=== PATIENT | female | born 1980 | race Caucasian/White ===

== ENCOUNTER 2018-02-12 08:03 | Outpatient (CLI) | payer OTHER | END 2018-02-12 08:04 | disposition home or self-care (01) | LOC: BICMAMMO 08:03 | PROVIDERS: ATTEND Student in an Organized Health Care Education/Training Program | DX: N63.0 Unspecified lump in unspecified breast (principal); Z80.3 Family history of malignant neoplasm of breast | CPT/HCPCS: 76641; 77066; G0279 ==

== ENCOUNTER 2018-03-06 08:59 | Outpatient (CLI) | payer OTHER | END 2018-03-06 09:00 | disposition home or self-care (01) | LOC: DTY/OP 08:59 | PROVIDERS: ATTEND Family Medicine | DX: E66.9 Obesity, unspecified (principal); R53.83 Other fatigue; Z68.37 Body mass index [BMI] 37.0-37.9, adult | CPT/HCPCS: 97802 ==

== ENCOUNTER 2018-03-11 00:47 | Outpatient (CLI) | payer OTHER ==
[2018-03-11 01:18] LABS: ALT (SGPT) 21 U/L (8-55); AST (SGOT) 16 U/L (5-34); Albumin 4.4 g/dL (3.5-5.0); Alkaline Phosphatase 83 U/L (40-150); Anion Gap 13 mmol/L (10-20); BUN (Urea Nitrogen) 8 mg/dL (7.0-18.7); Bilirubin, Total 0.4 mg/dL (0.2-1.2); Calc. Creatinine Clearance 0 mL/min (70-130); Calcium 9.6 mg/dL (7.8-10.44); Carbon Dioxide 26 mmol/L (22-29); Chloride 103 mmol/L (98-107); Estimated GFR-MDRD 84; Globulin 3.9 g/dL (2.4-3.5); Glucose 95 mg/dL (70-105); Potassium 3.9 mmol/L (3.5-5.1); Protein, Total 8.3 g/dL (6.0-8.3); Sodium 138 mmol/L (136-145)
== END 2018-03-11 00:48 ==
LOC: SJX 00:47
PROVIDERS: ATTEND Family Medicine
DX: E66.9 Obesity, unspecified (principal); Z68.37 Body mass index [BMI] 37.0-37.9, adult
CPT/HCPCS: 36415; 80053; 83036; 84443

== ENCOUNTER 2018-05-31 08:52 | Outpatient (CLI) | payer OTHER | END 2018-05-31 08:53 | disposition home or self-care (01) | LOC: DTY/OP 08:52 | PROVIDERS: ATTEND Surgery | DX: E66.01 Morbid (severe) obesity due to excess calories (principal) | CPT/HCPCS: 97802 ==

== ENCOUNTER 2018-06-21 09:57 | Outpatient (CLI) | payer OTHER ==
[2018-06-21 11:11] LABS: #Eosinphils 0.3 thou/uL (0.0-0.7); #Lymphocytes 2.5 thou/uL (1.20-3.40); #Neutrophils 6.9 thou/uL (1.40-6.50); %Basophils 0.3 % (0.0-1.0); %Lymphocytes 23.4 % (21.0-51.0); %Monocytes 8.9 % (0.0-10.0); %Neutrophils 64.4 % (42.0-75.0); Hemoglobin 13.2 g/dL (12.0-16.0); Mean Corpuscular HGB CONC 34.5 g/dL (32.0-36.0); Mean Corpuscular Hemoglobin 28.8 pg (27.0-31.0); Mean Corpuscular Volume 83.5 fL (78.0-98.0); Mean Platelet Volume 8.2 fL (7.4-10.4); Platelet Count 312 thou/uL (130-400); RBC Distribution Width 12.9 % (11.5-14.5); Red Blood Cell (RBC) Count 4.58 mill/uL (4.20-5.40); White Blood Cell (WBC) Count 10.7 thou/uL (4.8-10.8)
[2018-06-21 11:20] LABS: BHCG - Serum Negative (NEGATIVE); Pregs Control Background? CLEAR/WHITE (CLR/WHITE); Pregs Control Bar Appear? YES (CONTROL BAR)
[2018-06-21 11:32] LABS: ALT (SGPT) 22 U/L (8-55); AST (SGOT) 21 U/L (5-34); Albumin 4.2 g/dL (3.5-5.0); Alkaline Phosphatase 88 U/L (40-150); Anion Gap 12 mmol/L (10-20); BUN (Urea Nitrogen) 15 mg/dL (7.0-18.7); Bilirubin, Direct 0.2 mg/dL (0.1-0.3); Bilirubin, Total 0.4 mg/dL (0.2-1.2); Calc. Creatinine Clearance 0 mL/min (70-130); Calcium 9.8 mg/dL (7.8-10.44); Carbon Dioxide 25 mmol/L (22-29); Chloride 101 mmol/L (98-107); Estimated GFR-MDRD 84; Glucose 80 mg/dL (70-105); Potassium 4.2 mmol/L (3.5-5.1); Protein, Total 8.2 g/dL (6.0-8.3); Sodium 134 mmol/L (136-145)
[2018-06-21 11:41] LABS: Hemoglobin A1c 5.6 % (4.0-6.0)
--- NOTE | 2018-06-21 12:35 | RAD ---
PA AND LATERAL CHEST: HISTORY: Preop. FINDINGS: Heart size and mediastinum are within normal limits. The lungs are clear of any infiltrative process . No significant bony findings. IMPRESSION: No active intrathoracic disease. POS: [facility]
--- NOTE | 2018-06-21 19:07 | EKG ---
Test Reason : Blood Pressure : / mmHG Vent. Rate : 073 BPM Atrial Rate : 073 BPM P-R Int : 138 ms QRS Dur : 082 ms QT Int : 376 ms P-R-T Axes : 063 052 048 degrees QTc Int : 414 ms Normal sinus rhythm Normal ECG No previous ECGs available Confirmed by Sharonda MITCHELL ([id number]) on 06/21/2018 7:07:05 PM Referred By: MARCIA Confirmed By:Sharonda MITCHELL
== END 2018-06-21 09:58 | disposition home or self-care (01) ==
LOC: LABBT 09:57
PROVIDERS: ATTEND Surgery
DX: Z01.818 Encounter for other preprocedural examination (principal); E66.01 Morbid (severe) obesity due to excess calories
CPT/HCPCS: 71046; 80053; 80076; 83036; 84703; 85025; 93005; 93010

== ENCOUNTER 2018-06-21 10:30 | Inpatient (IN) | payer OTHER ==
[2018-06-21 10:15] VITALS: BMI 34.1
[2018-07-03] MEDS ORDERED: Heparin 5,000 UNITS/ML VIAL ONE (12:49)
[2018-07-03] MEDS ORDERED: CEFAZOLIN 2 GM/50 ML BAG ONE (12:49)
[2018-07-03] MEDS ORDERED: Scopolamine 1.5 mg/72 hour Patch ONE (12:58)
[2018-07-03] MEDS ORDERED: Bupivacaine/Epinephrine 0.25% 30 ML VIAL ONE (13:14)
[2018-07-03] MEDS ORDERED: Midazolam HCl 2 mg/2 ml Vial ONE (13:16)
[2018-07-03] MEDS ORDERED: Famotidine/PF 20 mg/2ml Vial ONE ×2 (13:28→13:39)
[2018-07-03] MEDS ORDERED: Fentanyl 100 MCG/2 ML VIAL ONE ×4 (13:28→16:51)
[2018-07-03] MEDS ORDERED: Oxymetazoline HCl 0.05% ( 15 ML ) ONE (13:39)
[2018-07-03] MEDS ORDERED: Ondansetron PF 4 MG/2 ML Vial ONE ×2 (13:40→21:49)
[2018-07-03] MEDS ORDERED: Promethazine HCl 25 MG/ML VIAL IM PRN ×3 (15:43→16:26)
[2018-07-03] MEDS ORDERED: Ondansetron HCl/PF 4 MG/2 ML Vial IVP PRN ×2 (15:43→16:26)
[2018-07-03] MEDS ORDERED: Promethazine HCl 25 MG/ML VIAL SLOW IVP PRN ×2 (15:43→16:26)
[2018-07-03] MEDS ORDERED: HYDROmorphone 2 MG/ML VIAL SLOW IVP PRN (15:43)
[2018-07-03] MEDS ORDERED: Meperidine HCl/PF 25 MG/ML VIAL SLOW IVP PRN (15:43)
[2018-07-03] MEDS ORDERED: Promethazine HCl 25 MG/ML VIAL ONE (15:59)
[2018-07-03] MEDS ORDERED: Dextrose 50% Abboject 50 ML SYRINGE SLOW IVP PRN (16:17)
[2018-07-03] MEDS ORDERED: Hydrocodone-Acetamin 15 ML UDCUP PO PRN ×2 (16:17→16:32)
[2018-07-03] MEDS ORDERED: Ondansetron PF 4 MG/2 ML Vial IVP PRN (16:17)
[2018-07-03] MEDS ORDERED: diphenhydrAMINE 50 MG/ML VIAL IVP PRN ×2 (16:17→16:26)
[2018-07-03] MEDS ORDERED: hydrALAZINE 20 MG/ML VIAL SLOW IVP PRN (16:17)
[2018-07-03] MEDS ORDERED: Dextrose 5% in Water 1,000 ML IV PRN (16:17)
[2018-07-03] MEDS ORDERED: Zolpidem Tartrate 5 MG TAB PO PRN (16:26)
[2018-07-03] MEDS ORDERED: diphenhydrAMINE 50 MG/ML VIAL IM PRN (16:26)
[2018-07-03] MEDS ORDERED: Naloxone HCl 0.4 mg/ml Vial IV PRN (16:26)
[2018-07-03] MEDS ORDERED: fentaNYL Citrate/PF 2,000 MCG in Sodium Chloride 0.9% 60 ML IV PRN (16:26)
[2018-07-03] MEDS ORDERED: diphenhydrAMINE 25 MG CAP PO PRN (16:26)
[2018-07-03] MEDS ORDERED: Communication Order-Pharmacy FS SCH (16:30)
[2018-07-03] MEDS: D5 1/2 NS w/20 mEq KCL 1,000 ML IV SCH (18:19)
[2018-07-03] MEDS: Acetaminophen 1,000 MG in Premix Bag 1 BAG IVPB SCH (21:11)
[2018-07-03] MEDS: Enoxaparin Sodium 40 MG/0.4 ML SYRINGE SC SCH (21:11)
[2018-07-03] MEDS ORDERED: Lidocaine 1% PF 5 ML VIAL ONE (21:49)
[2018-07-03] MEDS ORDERED: PROPOFOL 200 MG/20 ML VIAL ONE (21:49)
[2018-07-03] MEDS ORDERED: Dexamethasone 20 MG/5 ML VIAL ONE (21:49)
[2018-07-03] MEDS ORDERED: Glycopyrrolate 0.2 MG/ML 5 ML SYRINGE ONE (21:49)
[2018-07-03] MEDS ORDERED: PHENYLEPHRINE-NS 100 MCG/ML 10 ML SYRINGE ONE (21:49)
[2018-07-03] MEDS ORDERED: Ketorolac Tromethamine 30 MG/ML VIAL ONE (21:49)
[2018-07-03] MEDS: Ondansetron PF 4 MG/2 ML Vial IVP PRN (22:48)
[2018-07-04] MEDS: Promethazine HCl 25 MG/ML VIAL IM PRN ×4 (00:30→18:31)
[2018-07-04] MEDS: Acetaminophen 1,000 MG in Premix Bag 1 BAG IVPB SCH ×3 (02:26→14:35)
[2018-07-04] MEDS: D5 1/2 NS w/20 mEq KCL 1,000 ML IV SCH ×3 (02:29→19:00)
[2018-07-04] MEDS: Ondansetron PF 4 MG/2 ML Vial IVP PRN ×3 (04:57→20:38)
[2018-07-04 08:16] LABS: #Lymphocytes 2.3 thou/uL (1.20-3.40); #Monocytes 1.1 thou/uL (0.11-0.59); #Neutrophils 7.8 thou/uL (1.40-6.50); %Basophils 0.2 % (0.0-1.0); %Eosinophils 0.3 % (0.0-10.0); %Lymphocytes 20.6 % (21.0-51.0); %Neutrophils 68.9 % (42.0-75.0); Hemoglobin 12.1 g/dL (12.0-16.0); Mean Corpuscular HGB CONC 32.1 g/dL (32.0-36.0); Platelet Count 271 thou/uL (130-400); RBC Distribution Width 13.3 % (11.5-14.5); Red Blood Cell (RBC) Count 4.49 mill/uL (4.20-5.40); White Blood Cell (WBC) Count 11.2 thou/uL (4.8-10.8)
[2018-07-04 08:25] LABS: Anion Gap 12 mmol/L (10-20); BUN (Urea Nitrogen) 4 mg/dL (7.0-18.7); Calc. Creatinine Clearance 179 mL/min (70-130); Calcium 8.8 mg/dL (7.8-10.44); Carbon Dioxide 24 mmol/L (22-29); Chloride 105 mmol/L (98-107); Estimated GFR-MDRD Greater than 90; Glucose 122 mg/dL (70-105); Potassium 3.9 mmol/L (3.5-5.1); Sodium 137 mmol/L (136-145)
[2018-07-04] MEDS: Pantoprazole 40 MG VIAL IVP SCH (08:53)
[2018-07-04] MEDS ORDERED: Acetaminophen 1,000 MG in Premix Bag 1 BAG IVPB PRN (16:41)
--- NOTE | 2018-07-04 17:12 | PRG ---
DATE OF SERVICE: 07/04/2018 SUBJECTIVE: Postop day #1. Ms. Roman is still having persistent nausea this afternoon. She dry heaves with attempting too much p.o. OBJECTIVE: She is afebrile. Vital signs are stable. Her wounds are healing well. LABORATORY DATA: White blood cell count is 11 and hemoglobin is 12. Sodium 137 and creatinine is 0.71. ASSESSMENT: Postoperative day #1 gastric sleeve and cholecystectomy. PLAN: Continue IV fluids. Continue observation. 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 We will control her pain with Toradol and IV Tylenol. Job ID: [id number]
[2018-07-04] MEDS: Ketorolac Tromethamine 30 MG/ML VIAL IVP PRN (18:31)
[2018-07-04] MEDS: Enoxaparin Sodium 40 MG/0.4 ML SYRINGE SC SCH (20:13)
[2018-07-05] MEDS: D5 1/2 NS w/20 mEq KCL 1,000 ML IV SCH ×2 (00:45→06:14)
[2018-07-05] MEDS: Ketorolac Tromethamine 30 MG/ML VIAL IVP PRN (04:04)
[2018-07-05] MEDS: Ondansetron PF 4 MG/2 ML Vial IVP PRN (04:05)
[2018-07-05 07:58] VITALS: TEMP 98.9
[2018-07-05] MEDS: Pantoprazole 40 MG VIAL IVP SCH (09:28)
--- NOTE | 2018-07-05 10:28 | DIS ---
DATE OF ADMISSION: 07/03/2018 DATE OF DISCHARGE: 07/05/2018 ADMITTING DIAGNOSES: Morbid obesity, symptomatic gallstones. DISCHARGE DIAGNOSES: Morbid obesity, symptomatic gallstones. PROCEDURE PERFORMED: Laparoscopic sleeve and cholecystectomy by Dr. Barnes without complication. CONDITION ON DISCHARGE: Improved. STAFF: Dr. Barnes. HOSPITAL COURSE: On postop day #2, the patient's nausea is much improved. She is ambulatory. She is drinking adequate enough liquids. She is being discharged to home. She will follow up with me in 2 weeks. Job ID: [id number]
[2018-07-05 11:39] VITALS: BP 106/72
--- NOTE | 2018-07-05 12:56 | OP ---
DATE OF PROCEDURE: 07/03/2018 PREOPERATIVE DIAGNOSES: 1. Morbid obesity with body mass index of 35. 2. Symptomatic cholelithiasis. POSTOPERATIVE DIAGNOSES: 1. Morbid obesity with body mass index of 35. 2. Symptomatic cholelithiasis. PROCEDURES PERFORMED: 1. Laparoscopic sleeve gastrectomy with [place] staple line reinforcements and 38-Pashto bougie. 2. Laparoscopic cholecystectomy. ANESTHESIA: General. ESTIMATED BLOOD LOSS: Minimal. COMPLICATIONS: None. SPECIMEN: Gallbladder, stomach. DESCRIPTION OF PROCEDURE: The patient was taken to the operating room and laid supine on the operating room table. After general anesthetic was obtained, the abdomen was prepped and draped in a sterile fashion. An OG tube was used to decompress the stomach. Left subcostal 5 mm Optiview trocar was placed in the usual fashion and high-flow pneumoperitoneum was obtained. Left abdominal 12 mm ports as well as right subcostal 5 mm port were placed under direct visualization. A 5 mm incision was made at the xiphoid and the Anni was used to raise the liver off the GE junction. The short gastrics were taken down at mid body of stomach to left niki of diaphragm. Left niki, posterior fundus, and angle of His were completely dissected. Short gastrics were taken down to a distance of 6 cm proximal to the pylorus. OG tube was removed and 38 bougie was brought in with its tip left in the antrum of the stomach. Multiple loads of the [place] stapling device was used to perform the sleeve. The first was fired up at a distance of 6 cm proximal to the pylorus angled up towards the incisura. Care was taken to avoid being too close to the incisura. Multiple loads were then fired up along the bougie and stomach was completely transected at the angle of His. The stomach was removed from the left abdominal incision. This fascial defect was closed using GraNee needle and a Vicryl tie. The bougie was removed and an EGD scope was passed through esophagus and stomach to the level of duodenum without obstruction. There was no stricture at the incisura. There was no air leakage or bleeding on the staple line. EGD scope was used to decompress the stomach, it was pulled and removed. The gallbladder was retracted superiorly over the liver. The peritoneum was opened anteriorly and posteriorly. The critical view triangle was seen showing only the cystic duct and cystic artery branching from medial to lateral. There were no other branching structures. Two clips were placed proximally, one distally, and cut. The cystic artery was taken using laparoscopic scissors. The cystic duct was taken in the same way. The gallbladder was retracted from the gallbladder fossa. Gallbladder was placed in an Endo catch bag and brought out through the left abdominal 12 mm port. All port sites were infiltrated using local anesthetic. All ports were removed under camera visualization without bleeding. Pneumoperitoneum was let down. All incisions were irrigated and closed using 4-0 Monocryl and Dermabond. The patient was sent to Recovery in stable condition. All instrument counts, needle counts, and lap counts were correct. Job ID: [id number]
== END 2018-07-05 13:13 | disposition home or self-care (01) | DRG 621 ==
LOC: SURG A 07-03 11:06
PROVIDERS: ADMIT Surgery; ATTEND Surgery
PROC: 0DB64Z3 Excision of Stomach, Percutaneous Endoscopic Approach, Vertical (ICD-10-PCS; principal; 2018-07-03)
PROC: 0FT44ZZ Resection of Gallbladder, Percutaneous Endoscopic Approach (ICD-10-PCS; 2018-07-03)
DX: E66.01 Morbid (severe) obesity due to excess calories (principal); Z68.35 Body mass index [BMI] 35.0-35.9, adult; K80.20 Calculus of gallbladder without cholecystitis without obstruction; Z82.49 Family history of ischemic heart disease and other diseases of the circulatory system; Z83.3 Family history of diabetes mellitus
CPT/HCPCS: 36415; 80048; 85025; 88304; 88307; 88312; 94760; 96374; C9113; J0131; J1100; J1200; J1644; J1650; J1885; J2001; J2250; J2405; J2550; J2704; J3010; J7050; S0028

== ENCOUNTER 2019-04-27 13:21 | Emergency (ER) | payer OTHER ==
--- NOTE | 2019-04-27 14:57 | RAD ---
Right ankle 3 views HISTORY: Right ankle injury. FINDINGS: Ankle mortise and talar dome are intact. No acute fracture or dislocation. IMPRESSION: No acute osseous abnormalities are demonstrated.
== END 2019-04-27 15:36 | disposition home or self-care (01) ==
LOC: ERS 13:21
DX: S93.401A Sprain of unspecified ligament of right ankle, initial encounter (principal); W10.9XXA Fall (on) (from) unspecified stairs and steps, initial encounter

== ENCOUNTER 2020-06-15 10:19 | Day surgery (SDC) | payer OTHER ==
[2020-06-15] MEDS ORDERED: CeleCOXIB 100 MG CAP ONE (10:50)
[2020-06-15] MEDS ORDERED: Gabapentin 300 MG CAP ONE (10:50)
[2020-06-15] MEDS ORDERED: Famotidine/PF 20 mg/2ml Vial ONE (10:50)
[2020-06-15] MEDS ORDERED: Midazolam HCl 2 mg/2 ml Vial ONE (11:30)
[2020-06-15] MEDS ORDERED: Scopolamine 1.5 mg/72 hour Patch ONE (11:31)
[2020-06-15] MEDS ORDERED: Fentanyl 250 MCG/5 ML VIAL ONE (12:19)
[2020-06-15] MEDS ORDERED: Lidocaine 1% w/Epinephrine 1:100K 20 ML VIAL ONE (12:21)
[2020-06-15] MEDS ORDERED: diphenhydrAMINE 50 MG/ML VIAL ONE (12:21)
[2020-06-15] MEDS ORDERED: Dexamethasone 20 MG/5 ML VIAL ONE (12:21)
[2020-06-15] MEDS ORDERED: Bupivacaine 0.25% HCL 30 ML VIAL ONE (12:21)
[2020-06-15] MEDS ORDERED: PROPOFOL 200 MG/20 ML VIAL ONE (12:21)
[2020-06-15] MEDS ORDERED: Ondansetron PF 4 MG/2 ML Vial ONE (12:21)
[2020-06-15] MEDS ORDERED: Glycopyrrolate 0.2 MG/ML 5 ML SYRINGE ONE (12:21)
[2020-06-15] MEDS ORDERED: Rocuronium Bromide 10 MG/ML (10ML VIAL) ONE (12:21)
[2020-06-15] MEDS ORDERED: Fentanyl 100 MCG/2 ML VIAL ONE (15:08)
[2020-06-15] MEDS ORDERED: HYDROcodone/Acetaminophen 5/325 mg Tablet ONE (16:30)
--- NOTE | 2020-06-16 13:04 | OP ---
DATE OF PROCEDURE: 06/15/2020 PREOPERATIVE DIAGNOSIS: Menorrhagia. POSTOPERATIVE DIAGNOSES: Menorrhagia plus endometriosis. PROCEDURES PERFORMED: Robotic-assisted total laparoscopic hysterectomy, bilateral salpingectomy, and excision of endometriosis. ANESTHESIA: General endotracheal. TRACTOR DRILL OPERATOR SURGEON: Deidra Valencia PA-C ESTIMATED BLOOD LOSS: 20 mL. URINE OUTPUT: 100 mL clear urine. PATHOLOGY: 1. Uterus, cervix, bilateral fallopian tubes. 2. Right uterosacral ligament peritoneum. 3. Left pelvic sidewall peritoneum. COMPLICATIONS: None. DRAINS: Carrillo catheter. FINDINGS: An 8 cm uterus, 4 cm anterior subserosal fibroid. Multiple endometriotic balloon implants on the right uterosacral ligament and the left pelvic sidewall peritoneum. These were resected entirely. The left ovary was adherent to the left pelvic sidewall where these endometriotic implants were present and this was taken down. The ureters and bladder were intact. There was excellent hemostasis. There were normal ovaries and fallopian tubes bilaterally. DESCRIPTION OF PROCEDURE: The patient was taken to the operating room, where general anesthesia was obtained without difficulty. The patient was prepped and draped in a sterile fashion in dorsal lithotomy position. Carrillo catheter was placed in the bladder. A speculum was placed in the vagina. The anterior lip of the cervix was grasped with a single-tooth tenaculum. The cervix was then progressively dilated with Dereck dilators and sounded to 8 cm. The MARLEE manipulator was assembled with an 8 cm tip and a 3.5 cm colpotomizer ring. The manipulator was inserted into the uterus. The balloons were inflated. The speculum and tenaculum were removed out of the vagina. Legs were placed in low lithotomy. Attention was turned to the abdomen. A mixture of 0.5% Marcaine with epinephrine and 1% lidocaine plain were infiltrated into the umbilicus and a 12 mm skin incision was made. The Veress needle was passed into the abdomen noting an opening pressure of 2 mmHg. Pneumoperitoneum was obtained without difficulty. The Veress needle was removed and a 12 mm trocar was passed into the abdomen and confirmed placement with robotic camera. Steep Trendelenburg was obtained. Right and left lower quadrant 8 mm robotic trocars were placed under direct visualization after infiltrating with anesthetic mixture. A right upper quadrant 11 mm port was also placed under direct visualization after infiltrating with anesthetic. The robot was then docked. The right robotic arm contained monopolar scissors. Left robotic arm contained a fenestrated bipolar. The above findings were noted. The right fallopian tube was grasped and elevated. The ovary was free of any adhesions. The mesosalpinx and the vasculature to the fallopian tube were cauterized with the fenestrated and incised with the scissors until the medial portion of the fallopian tube was met, that was clamped across with the fenestrated, cauterized, and then incised with the scissors and the fallopian tube was removed out of the abdomen. The right utero-ovarian was cauterized multiple times with the fenestrated and incised with the scissors as well as the round ligament was cauterized in the midportion and incised with the scissors. This opened up the anterior and posterior leaf of the broad ligament and the posterior leaf of the broad ligament was incised pushing retroperitoneum adventitia away with the fenestrated bluntly and the posterior leaf was incised down to the level of the uterosacral ligament and the ureter was then identified in the retroperitoneum laterally. The anterior leaf of the broad ligament was incised down to the level of the vesicouterine peritoneum. The vessels on the right side were then skeletonized sharply with the scissors as well as bluntly with the fenestrated pushing and spreading. The vesicouterine peritoneum was incised tenting up with the fenestrated to ensure a superficial incision and no inadvertent damage to the bladder. Adventitia of the bladder was then pushed away and incised with the scissors to create a bladder flap. Attention was turned to the left fallopian tube that was grasped and elevated. The ovary was gently peeled off the pelvic sidewall easily. The vasculature to the fallopian tube in the mesosalpinx was cauterized and incised as well as the supporting structures and the medial portion was clamped across, cauterized with the fenestrated, and incised with the scissors, and the fallopian tube was removed out of the abdomen. The left utero-ovarian was cauterized with the fenestrated and incised with scissors and taken down to the midportion of the round ligament that was cauterized and incised as well. The posterior leaf of the broad ligament was incised down to the level of the uterosacral with the scissors and the anterior leaf of the broad ligament was incised down to the bladder flap. The vessels on the left side were skeletonized with the scissors and the ureter was identified in the pelvic sidewall retroperitoneally and laterally. The uterine pedicle was then cauterized bilaterally. The colpotomy was performed anteriorly and posteriorly. The vessels were then incised at the level of the internal cervical os and then dissected down off the cardinal ligament to allow the pedicle to fall away and the ureter to fall bilaterally. The colpotomy was then completed and the uterus was then placed into the vagina. The pelvis was irrigated and suctioned. Hemostasis was achieved of the vaginal cuff with the fenestrated. The scissors were traded out for the needle regional dedicated truck driver and a 2-0 barbed Stratafix suture was used to close the vaginal cuff in a running fashion and this was run back for a second layer. This stitch incorporated vaginal mucosa and posterior peritoneum in each bite. Once this was completed, the needle was cut and removed out of the abdomen. The endometriotic implants present on the right uterosacral ligament were then grasped with the fenestrated. The scissors were then placed back into the right robotic arm and the peritoneum surrounding these endometriotic implants were incised and this implant on the right uterosacral ligament was incised in one piece and sent for final pathology. The implants present on the left pelvic sidewall were also grasped and tented upon with the fenestrated and then incised with the scissors surrounding it and these were excised completely and this was also sent for final pathology. Irrigation was then performed of the pelvis again and low pressure check was performed, noting excellent hemostasis. The ureters were noted and the pelvic sidewall vermiculating. All instruments were then removed out of the abdomen. Pneumoperitoneum was released. The robot was undocked. The fascia of the umbilical port was repaired with 0 Vicryl in a [id number] fashion. The skin was closed with 4-0 Monocryl in a subcuticular fashion. Dermabond was applied as well as a pressure dressing. The vagina was checked vaginally and was noted to have excellent hemostasis and reapproximation and all instruments were removed out of vagina. The patient tolerated the procedure well. Sponge, lap, and needle counts were correct x2. The patient was taken to Recovery in stable condition. The patient received Ancef 2 g prior to procedure. Job ID: [id number]
== END 2020-06-15 17:32 | disposition home or self-care (01) ==
LOC: SDC 10:19
PROVIDERS: ATTEND Student in an Organized Health Care Education/Training Program
PROC: 0UT7FZZ Resection of Bilateral Fallopian Tubes, Via Natural or Artificial Opening With Percutaneous Endoscopic Assistance (ICD-10-PCS; principal; 2020-06-15)
PROC: 0UT74ZZ Resection of Bilateral Fallopian Tubes, Percutaneous Endoscopic Approach (ICD-10-PCS; principal; 2020-06-15)
PROC: 0UT94ZZ Resection of Uterus, Percutaneous Endoscopic Approach (ICD-10-PCS; principal; 2020-06-15)
DX: D25.2 Subserosal leiomyoma of uterus (principal); N87.9 Dysplasia of cervix uteri, unspecified; N72 Inflammatory disease of cervix uteri; Z79.899 Other long term (current) drug therapy
CPT/HCPCS: 36415; 86850; 86900; 86901; 88305; 88307; J0690; J1100; J1200; J2250; J2405; J2704; J3010; S0020; S0028